=== PATIENT | male | born 1975 | race Hispanic/Latino ===

== ENCOUNTER 2016-08-10 05:58 | Emergency (ER) | payer OTHER ==
[2016-08-10 06:03] VITALS: O2SAT 98; BMI 22.6
[2016-08-10 06:13] VITALS: RESP 18
--- NOTE | 2016-08-10 06:15 | ED PDOC ---
Arrival/HPI - General Historian: Patient - General Chief Complaint: Shortness Of Breath Time Seen by Provider: 08/10/16 06:00 - History of Present Illness Narrative History of Present Illness (Text): 08/10/16 06:12 41 yo M with hx of pneumothorax, kidney stones and anxiety that presents with sob since previous night. He states that it feels as though he cannot catch his breath with no inciting factor. He admits to having a lot of stress at home lately. States that he was not able to sleep last night because of his symptoms. Denies any NAIDU, visual changes, travel, chest pain, sob, cough, palpitations, nausea or vomiting. (Arash Barber) Past Medical History - Provider Review Nursing Documentation Reviewed: Yes - Infectious Disease Hx of Infectious Diseases: None - Tetanus Immunization Tetanus Immunization: Unknown - Cardiac Hx Hypertension: Yes - Pulmonary Hx Respiratory Disorders: Yes - Psychiatric Hx Depression: No Hx Emotional Abuse: No Hx Physical Abuse: No Hx Substance Use: No - Past Surgical History Past Surgical History: No Previous - Suicidal Assessment Feels Threatened In Home Enviroment: No Family/Social History - Physician Review Nursing Documentation Reviewed: Yes Family/Social History: No Known Family HX Smoking Status: Light Smoker < 10 Cigarettes Daily Hx Alcohol Use: Yes (social) Hx Substance Use: No Hx Substance Use Treatment: No Allergies/Home Meds Allergies/Adverse Reactions: Allergies No Known Allergies Allergy (Verified 12/09/11 09:30) Home Medications: Home Meds Medication Instructions Recorded Confirmed Alprazolam 0.25 mg PO PRN 05/18/12 05/18/12 Review of Systems - Review of Systems Constitutional: Normal. absent: Fatigue, Fevers Eyes: Normal. absent: Vision Changes, Eye Pain ENT: Normal Respiratory: SOB. absent: Cough, Sputum Cardiovascular: Normal. absent: Chest Pain, Palpitations Gastrointestinal: Normal. absent: Abdominal Pain, Nausea, Vomiting Genitourinary Male: Normal. absent: Dysuria, Frequency Musculoskeletal: Normal. absent: Arthralgias Skin: Normal. absent: Rash, Pruritis Neurological: Normal. absent: Headache, Dizziness Endocrine: Normal Hemo/Lymphatic: Normal Psychiatric: Normal Physical Exam Temperature: Afebrile Blood Pressure: Hypertensive Pulse: Tachycardic Respiratory Rate: Normal Appearance: Positive for: Well-Appearing, Non-Toxic, Comfortable Pain Distress: None Mental Status: Positive for: Alert and Oriented X 3 - Systems Exam Head: Present: Atraumatic, Normocephalic Pupils: Present: PERRL Respiratory/Chest: Present: Clear to Auscultation, Good Air Exchange. No: Respiratory Distress Cardiovascular: Present: Normal S1, S2, Tachycardic Abdomen: Present: Normal Bowel Sounds. No: Tenderness, Distention Upper Extremity: Present: NORMAL PULSES, Neurovascularly Intact Lower Extremity: Present: NORMAL PULSES, Neurovascularly Intact Neurological: Present: Speech Normal, Motor Func Grossly Intact Skin: Present: Warm, Dry Psychiatric: Present: Alert, Oriented x 3 Medical Decision Making ED Course and Treatment: 08/10/16 06:15 41 yo M with hx of pneumothorax and anxiety here with sob Plan: - Labs including d dimer - EKG, CXR - Xanax - Reassess and disposition EKG - sinus tachycardia, LVH, no st elevations 08/10/16 06:58 CXR - no infiltrates or pleural effusions. No pneumothorax or cardiomegaly ( Arash Barber) Patient seen and evaluated with resident. Agree with HPI, clinical findnigs, plan and treatment. 08/10/16 07:11 (Zion Wong) - Lab Interpretations Lab Results: 08/10/16 06:20 08/10/16 06:20 Lab Results 08/10/16 06:20: Sodium 139, Potassium 4.3, Chloride 101, Carbon Dioxide 27, Anion Gap 15, BUN 15, Creatinine 0.9, Est GFR ( Amer) > 60, Est GFR (Non- Af Amer) > 60, Random Glucose 109, Calcium 9.4, Magnesium 2.2, Total Bilirubin 0.8, AST 30, ALT 28, Alkaline Phosphatase 75, Lactate Dehydrogenase 471, Total Creatine Kinase 108, Troponin I Pending, Total Protein 7.7, Albumin 4.3, Globulin 3.4, Albumin/Globulin Ratio 1.3 08/10/16 06:20: WBC 12.9 H, RBC 4.89, Hgb 14.6, Hct 42.6, MCV 87.1, MCH 29.9, MCHC 34.3, RDW 12.6, Plt Count 285, MPV 8.7, Gran % 81.5 H, Lymph % (Auto) 8.5 L , [place] % (Auto) 8.7 H, Eos % (Auto) 1.1 L, Baso % (Auto) 0.2, Gran # 10.53 H, Lymph # 1.1 L, [place] # 1.1 H, Eos # 0.1, Baso # 0.02 - RAD Interpretation Radiology Orders: 08/10/16 06:10 CHEST PORTABLE [RAD] Stat - Medication Orders Current Medication Orders: Discontinued Medications Alprazolam (Xanax) 0.5 mg PO STAT STA PRN Reason: Protocol Stop: 08/10/16 06:11 Last Admin: 08/10/16 06:29 Dose: 0.5 mg Disposition/Present on Arrival - Present on Arrival Any Indicators Present on Arrival: No History of DVT/PE: No History of Uncontrolled Diabetes: No Urinary Catheter: No History of Decub. Ulcer: No History Surgical Site Infection Following: None - Disposition Have Diagnosis and Disposition been Completed?: No Disposition Time: 07:10 - Disposition Diagnosis: Shortness of breath Patient Problems: Current Active Problems Problem Status Onset Shortness of breath Acute Condition: STABLE Referrals: PCP,NO [Primary Care Provider] - Follow up with primary
[2016-08-10 06:36] LABS: ADD MANUAL DIFF? NO
[2016-08-10 07:00] LABS: BASO # 0.02 K/mm3 (0.0-2.0); BASO % 0.2 % (0.0-3.0); EOS # 0.1 (0.0-0.7); EOS % 1.1 % (1.5-5.0); GRAN # 10.53 (1.4-6.5); GRAN % 81.5 % (50.0-68.0); HEMATOCRIT 42.6 % (42.0-52.0); LYMPH # 1.1 (1.2-3.4); LYMPH % 8.5 % (22.0-35.0); MEAN CELL VOLUME 87.1 fL (80.0-105.0); MEAN CORPUSCULAR HEMOGLOBIN 29.9 pg (25.0-35.0); MEAN CORPUSCULAR HGB CONC 34.3 g/dl (31.0-37.0); MEAN PLATELET VOLUME 8.7 fl (7.0-11.0); MONO # 1.1 (0.1-0.6); MONO % 8.7 % (1.0-6.0); PLATELET COUNT 285 10^3/uL (120.0-450.0); RED CELL DISTRIBUTION WIDTH 12.6 % (11.5-14.5); WHITE BLOOD COUNT 12.9 10^3/ul (4.5-11.0)
[2016-08-10 07:04] LABS: PH,URINE 7.5 (4.7-8.0); URINE BILIRUBIN NEGATIVE (NEGATIVE); URINE BLOOD NEGATIVE (NEGATIVE); URINE GLUCOSE (UA) NEGATIVE (NEGATIVE); URINE KETONE NEGATIVE (NEGATIVE); URINE LEUKOCYTE ESTERASE NEGATIVE Leu/uL (NEGATIVE); URINE PROTEIN TRACE mg/dL (<30 mg/dL); URINE UROBILINOGEN 0.2 E.U./dL (<1 E.U./dL)
[2016-08-10 07:06] LABS: ALB/GLOB RATIO 1.3 (1.1-1.8); ALKALINE PHOSPHATASE 75 U/L (38-133); ALT/SGPT 28 U/L (7-56); AST/SGOT 30 U/L (15-59); BILIRUBIN,TOTAL 0.8 mg/dL (0.2-1.3); BLOOD UREA NITROGEN 15 mg/dL (7-21); CALCIUM 9.4 mg/dL (8.4-10.5); CARBON DIOXIDE 27 mmol/L (21-33); CHLORIDE 101 mmol/L (98-107); GFR AFRICAN-AMERICAN > 60; GLUCOSE,RANDOM 109 mg/dL (70-110); MAGNESIUM 2.2 mg/dL (1.7-2.2); POTASSIUM 4.3 mmol/L (3.6-5.0); SODIUM 139 mmol/L (132-148); TOTAL PROTEIN 7.7 g/dL (5.8-8.3)
[2016-08-10 07:16] LABS: URINE APPEARANCE SL CLOUDY (CLEAR); URINE COLOR YELLOW (YELLOW)
[2016-08-10 07:16] LABS: TROPONIN I < 0.01 ng/mL
[2016-08-10 07:22] LABS: URINE AMORPHOUS SEDIMENT FEW; URINE RBC NEGATIVE /hpf (0-2); URINE WBC NEGATIVE /hpf (0-6)
--- NOTE | 2016-08-10 07:58 | ED PDOC ---
Physical Exam Vital Signs Reviewed: Yes Vital Signs Temp Pulse Resp BP Pulse Ox 08/10/16 06:12 18 98 08/10/16 06:02 97.7 F 118 H 20 155/95 H 98 Temperature: Afebrile Blood Pressure: Hypertensive Pulse: Tachycardic Respiratory Rate: Normal Appearance: Positive for: Well-Appearing, Non-Toxic, Comfortable Pain Distress: None Mental Status: Positive for: Alert and Oriented X 3 Medical Decision Making ED Course and Treatment: 08/10/16 07:55 Patient reports his symptoms feel similar to previous anxiety symptoms. Patient currently feels better. Denies complaints 08/10/16 08:14 no acute findings on pt's labs currently denies cp/sob/[place], denies cough, denies feeling anxious, denies SI/HI states he feels comfortable being dc'd home with outpatient fu on reeval, pt's lungs clear to ausc b/l, speaking full sentences without difficulty, not tachycardic Pt states he understands to return to the ER right away for new or worsening symptoms or for inability to f/u with PMD or specialist as instructed. Patient states that he fully agrees with and understands discharge instructions. States that he agrees with the plan and disposition. Verbalized and repeated discharge instructions and plan. I have given the patient opportunity to ask any additional questions. - Lab Interpretations Lab Results: 08/10/16 06:20 08/10/16 06:20 Lab Results 08/10/16 06:50: Urine Opiates Screen Negative, Urine Methadone Screen Negative, Ur Barbiturates Screen Negative, Ur Phencyclidine Scrn Negative, Ur Amphetamines Screen Negative, U Benzodiazepines Scrn Negative, U Oth Cocaine Metabols Positive H, U Cannabinoids Screen Negative 08/10/16 06:50: Urine Color Yellow, Urine Appearance Sl cloudy, Urine pH 7.5, Ur Specific [place] 1.015, Urine Protein Trace H, Urine Glucose (UA) Negative, Urine Ketones Negative, Urine Blood Negative, Urine Nitrate Negative, Urine Bilirubin Negative, Urine Urobilinogen 0.2, Ur Leukocyte Esterase Negative, Urine RBC Negative, Urine WBC Negative, Amorphous Sediment Few 08/10/16 06:20: D-Dimer, Quantitative 0.41 08/10/16 06:20: Sodium 139, Potassium 4.3, Chloride 101, Carbon Dioxide 27, Anion Gap 15, BUN 15, Creatinine 0.9, Est GFR ( Amer) > 60, Est GFR (Non- Af Amer) > 60, Random Glucose 109, Calcium 9.4, Magnesium 2.2, Total Bilirubin 0.8, AST 30, ALT 28, Alkaline Phosphatase 75, Lactate Dehydrogenase 471, Total Creatine Kinase 108, Troponin I < 0.01, Total Protein 7.7, Albumin 4.3, Globulin 3.4, Albumin/Globulin Ratio 1.3 08/10/16 06:20: WBC 12.9 H, RBC 4.89, Hgb 14.6, Hct 42.6, MCV 87.1, MCH 29.9, MCHC 34.3, RDW 12.6, Plt Count 285, MPV 8.7, Gran % 81.5 H, Lymph % (Auto) 8.5 L , [place] % (Auto) 8.7 H, Eos % (Auto) 1.1 L, Baso % (Auto) 0.2, Gran # 10.53 H, Lymph # 1.1 L, [place] # 1.1 H, Eos # 0.1, Baso # 0.02 - RAD Interpretation Radiology Orders: 08/10/16 06:10 CHEST PORTABLE [RAD] Stat - Medication Orders Current Medication Orders: Discontinued Medications Alprazolam (Xanax) 0.5 mg PO STAT STA PRN Reason: Protocol Stop: 08/10/16 06:11 Last Admin: 08/10/16 06:29 Dose: 0.5 mg - Scribe Statement The provider has reviewed the documentation as recorded by the Rashawn Durham Provider Scribe Attestation: All medical record entries made by the Rashawn were at my direction and personally dictated by me. I have reviewed the chart and agree that the record accurately reflects my personal performance of the history, physical exam, medical decision making, and the department course for this patient. I have also personally directed, reviewed, and agree with the discharge instructions and disposition. Disposition/Present on Arrival - Present on Arrival Any Indicators Present on Arrival: No History of DVT/PE: No History of Uncontrolled Diabetes: No Urinary Catheter: No History of Decub. Ulcer: No History Surgical Site Infection Following: None - Disposition Have Diagnosis and Disposition been Completed?: Yes Diagnosis: Shortness of breath Disposition: HOME/ ROUTINE Disposition Time: 08:15 Patient Plan: Discharge Patient Problems: Current Active Problems Problem Status Onset Shortness of breath Acute Condition: GOOD Discharge Instructions (ExitCare): Dyspnea (ED), Anxiety (ED) Additional Instructions: PLEASE RETURN TO THE EMERGENCY DEPARTMENT FOR NEW OR WORSENING SYMPTOMS. RETURN RIGHT AWAY IF YOU CANNOT FOLLOW UP WITH YOUR PRIMARY CARE DOCTOR, CLINIC, OR SPECIALIST IN 1-2 DAYS. Referrals: PCP,NO [Primary Care Provider] - Follow up with primary Denilson Jackson DO [Staff Provider] - Follow up with primary [facility] at [facility] [Outside] - Follow up with primary [facility] [Outside] - Follow up with primary
[2016-08-10 08:29] VITALS: BP 140/100; PULSE 79; TEMP 98
--- NOTE | 2016-08-10 08:37 | RAD ---
HISTORY: sob COMPARISON: 05/14/2013 FINDINGS: LUNGS: No active pulmonary disease. PLEURA: No significant pleural effusion identified, no pneumothorax apparent. CARDIOVASCULAR: Normal. OSSEOUS STRUCTURES: No significant abnormalities. VISUALIZED UPPER ABDOMEN: Normal. OTHER FINDINGS: None. IMPRESSION: No active disease.
--- NOTE | 2016-08-10 22:35 | CARD ---
APPROVED REPORT EKG Measurement Heart [id number] <Conclusion> Sinus tachycardia Possible Left atrial enlargement Left ventricular hypertrophy Nonspecific T wave abnormality Abnormal ECG
== END 2016-08-10 08:27 | disposition home or self-care (01) ==
LOC: ED 05:58
DX: R06.02 Shortness of breath (principal)

== ENCOUNTER 2017-08-02 09:32 | Inpatient (IN) | payer OTHER ==
[2017-08-02] MEDS ORDERED: Sodium Chloride 0.9% 1,000 ML IV STA ×2 (10:29→13:30)
[2017-08-02 10:54] LABS: BASO # 0.01 K/mm3 (0.0-2.0); BASO % 0.1 % (0.0-3.0); GRAN # 16.22 (1.4-6.5); HEMOGLOBIN 14.4 g/dL (14.0-18.0); LYMPH # 1.7 (1.2-3.4); LYMPH % 8.9 % (22.0-35.0); MEAN CELL VOLUME 84.2 fl (80.0-105.0); MEAN CORPUSCULAR HEMOGLOBIN 29.6 pg (25.0-35.0); MEAN CORPUSCULAR HGB CONC 35.1 g/dl (31.0-37.0); MEAN PLATELET VOLUME 8.8 fl (7.0-11.0); MONO # 0.9 (0.1-0.6); RBC 4.87 10^6/uL (3.5-6.1); RED CELL DISTRIBUTION WIDTH 13.2 % (11.5-14.5); WHITE BLOOD COUNT 18.8 10^3/ul (4.5-11.0)
--- NOTE | 2017-08-02 11:01 | ED PDOC ---
Arrival/HPI - General Chief Complaint: Psychiatric Evaluation Time Seen by Provider: 08/02/17 10:15 Historian: Patient EM Caveat: Acuity of Condition, Unstable Vital Signs - History of Present Illness Narrative History of Present Illness (Text): 08/02/17 10:55 Pt is a 42 yr old male with history if anxiety and depression who presents today with severe agitation and thirst s/p MDMA intoxication x 1-2 weeks. pt states that he has taken 1-2g MDMA per day for the past 1.5 weeks. States that he has marital problems and was fired from his work recently and is currently on Day 2 of a new job. Denies SI, HI, fever, chills chest pain, shortness of breath, nausea, vomiting or diarrhea. 08/02/17 22:36 Time/Duration: > week Symptom Onset: Gradual Symptom Course: Unchanged, Worsening Quality: Unable to Describe Severity Level: 4 Activities at Onset: Rest Context: Home Past Medical History - Provider Review Nursing Documentation Reviewed: Yes - Travel History Have you recently traveled outside [place] w/in the past 3 mons?: No - Infectious Disease Hx of Infectious Diseases: None - Tetanus Immunization Tetanus Immunization: Unknown - Cardiac Hx Cardiac Disorders: No Hx Hypertension: Yes - Pulmonary Hx Respiratory Disorders: Yes - Neurological Hx Neurological Disorder: No - HEENT Hx HEENT Disorder: No - Renal Hx Renal Disorder: No - Endocrine/Metabolic Hx Endocrine Disorders: No - Hematological/Oncological Hx Blood Disorders: No - Integumentary Hx Dermatological Disorder: No - Musculoskeletal/Rheumatological Hx Musculoskeletal Disorders: No - Gastrointestinal Hx Gastrointestinal Disorders: No - Genitourinary/Gynecological Hx Genitourinary Disorders: No - Psychiatric Hx Psychophysiologic Disorder: Yes Hx Anxiety: Yes Hx Depression: Yes Hx Emotional Abuse: No Hx Physical Abuse: No Hx Substance Use: Yes (daily) - Past Surgical History Past Surgical History: No Previous - Surgical History Other/Comment: chest tube - Suicidal Assessment Feels Threatened In Home Enviroment: No Family/Social History - Physician Review Nursing Documentation Reviewed: Yes Family/Social History: Unknown Family HX Smoking Status: Light Smoker < 10 Cigarettes Daily Hx Alcohol Use: Yes (social) Hx Substance Use: Yes (daily) Substance used: [place], cocaine, marijuana Hx Substance Use Treatment: No Allergies/Home Meds Allergies/Adverse Reactions: Allergies No Known Allergies Allergy (Verified 08/02/17 19:04) Home Medications: Home Meds Medication Instructions Recorded Confirmed Unobtainable 08/02/17 08/02/17 Review of Systems - Review of Systems Systems not reviewed;Unavailable: Psychotic Constitutional: Normal, Fevers Eyes: Normal, Vision Changes ENT: Normal, Hearing Changes Respiratory: Normal. absent: SOB, Cough Cardiovascular: Normal. absent: Chest Pain Gastrointestinal: Normal. absent: Abdominal Pain Genitourinary Male: Normal. absent: Dysuria Musculoskeletal: Normal Skin: Normal Neurological: Normal. absent: Headache Endocrine: Normal Hemo/Lymphatic: Normal Psychiatric: Normal, Anxiety, Depression. absent: Suicidal Ideation Physical Exam Vital Signs Reviewed: Yes Vital Signs Temp Pulse Resp BP Pulse Ox 08/02/17 20:30 100 H 18 138/87 98 08/02/17 18:02 101 H 20 151/93 H 95 08/02/17 16:06 108 H 20 162/96 H 99 08/02/17 15:02 97.7 F 115 H 18 138/77 100 08/02/17 10:02 98.6 F 120 H 18 148/88 100 Temperature: Afebrile Blood Pressure: Normal Pulse: Tachycardic Respiratory Rate: Normal Appearance: Positive for: Well-Appearing, Non-Toxic, Comfortable Pain Distress: Mild Mental Status: Positive for: Alert and Oriented X 3, Agitated - Systems Exam Head: Present: Atraumatic, Normocephalic Pupils: Present: PERRL, Pinpoint Extroacular Muscles: Present: EOMI Conjunctiva: Present: Normal Mouth: Present: Moist Mucous Membranes Nose (External): Present: Atraumatic Nose (Internal): Present: Normal Inspection Neck: Present: Normal Range of Motion Respiratory/Chest: Present: Clear to Auscultation, Good Air Exchange. No: Respiratory Distress, Accessory Muscle Use Cardiovascular: Present: Regular Rate and Rhythm, Normal S1, S2. No: Murmurs Abdomen: Present: Normal Bowel Sounds. No: Tenderness, Distention, Peritoneal Signs, Rebound, Guarding, [place] Tender Back: Present: Normal Inspection. No: CVA Tenderness, Midline Tenderness, Paraspinal Tenderness Upper Extremity: Present: Normal Inspection, Normal ROM, NORMAL PULSES. No: Cyanosis, Edema Lower Extremity: Present: Normal Inspection, NORMAL PULSES, Normal ROM. No: Edema, CALF TENDERNESS Neurological: Present: GCS=15, CN II-XII Intact, Speech Normal (pressured), Motor Func Grossly Intact, Gait Normal. No: Memory Normal Skin: Present: Warm, Dry, Normal Color, Laceration (right foot on dorsal side). No: Rashes Psychiatric: Present: Alert, Oriented x 3, Normal Insight, Normal Concentration , Anxious, Agitated, Hallucinations, Intoxicated. No: Normal Affect, Normal Mood, Suicidal Ideation, Homicidal Ideation Medical Decision Making ED Course and Treatment: 08/02/17 11:01 Impression Pt is a 42 yr old male with history if anxiety and depression who presents today with severe agitation and thirst s/p MDMA intoxication x 1-2 weeks. Plan Tox screen, EtOH ECG, Fluids Cardiac ISO urine myoglobin Progress note 08/02/17 11:40 pt received Ativan 2 mg ivp and fluids Continues to be very agitated/restless and reports seeing and talking to small people outside of his room 08/02/17 12:28 Pt reports using cannibis and cocaine tuesday Psych consult placed Labs reveal: WBC 18.8 with grans 86% Total CK 1315 and CK-MB 13.6 tox screen still pending CXR and head CT STAT 08/02/17 13:[address] Schwartz in Psych. 08/02/17 14:37 NS 1L bolus added and Ativan 2mg Pt continues to be active, singing and dancing, stripping off his clothes Geodon 20mg IM ordered; pt stated he needed something to calm him down 08/02/17 14:59 Spoke with Hosptialist who agreed to take pt; requested that we wait until pt is calm before taking to the floor Admit to Tele for rhabdomyolisis secondary to polysubstance abuse Will contact Dr De La Fuente once pt psychologically stable 08/02/17 15:00 08/02/17 18:40 Pt broke through sedation, yelling, had a bloody mouth possibly d/t tongue biting Ativan 2mg STAT Haldol 5mg STAT Restraints put on at 17:00 and moved to Bed1 Spoke with at bedside and informed her of pt status and admission 08/02/17 22:37 pt remains sedated in ED awaiting bed on floor - Lab Interpretations Lab Results: 08/02/17 10:45 08/02/17 10:45 Lab Results 08/02/17 13:45: Urine Opiates Screen Negative, Urine Methadone Screen Negative, Ur Barbiturates Screen Negative, Ur Phencyclidine Scrn Negative, Ur Amphetamines Screen Negative, U Benzodiazepines Scrn Positive H, U Oth Cocaine Metabols Negative, U Cannabinoids Screen Negative 08/02/17 13:45: Urine Color Yellow, Urine Appearance Clear, Urine pH 6.0, Ur Specific [place] >= 1.030, Urine Protein 100 H, Urine Glucose (UA) Negative, Urine Ketones 40 H, Urine Blood Large H, Urine Nitrate Negative, Urine Bilirubin Small H, Urine Urobilinogen 0.2, Ur Leukocyte Esterase Trace H, Urine RBC 25 - 30, Urine WBC 5 - 10, Ur Epithelial Cells 0 - 2, Amorphous Sediment Few , Urine Bacteria Many, Fine Granular Casts 0 - 2, Coarse Granular Casts Trace H 08/02/17 10:45: PT 12.3, INR 1.07, APTT 27.9 08/02/17 10:45: Alcohol, Quantitative < 10 08/02/17 10:45: Sodium 141, Potassium 3.9, Chloride 102, Carbon Dioxide 23, Anion Gap 20, BUN 21, Creatinine 1.1, Est GFR ( Amer) > 60, Est GFR (Non- Af Amer) > 60, Random Glucose 73, Calcium 9.4, Total Bilirubin 1.7 H, AST 73 H, ALT 58 H, Alkaline Phosphatase 83, Lactate Dehydrogenase 1101 H, Total Creatine Kinase 1315 H, CK-MB (CK-2) 13.6 H, CK-MB (CK-2) % 1.0 L, Troponin I < 0.01, Total Protein 8.0, Albumin 4.6, Globulin 3.4, Albumin/Globulin Ratio 1.4 08/02/17 10:45: WBC 18.8 H D, RBC 4.87, Hgb 14.4, Hct 41.0 L, MCV 84.2, MCH 29.6 , MCHC 35.1, RDW 13.2, Plt Count 318, MPV 8.8, Gran % 86.0 H, Lymph % (Auto) 8.9 L, [place] % (Auto) 5.0, Eos % (Auto) 0.0 L, Baso % (Auto) 0.1, Gran # 16.22 H , Lymph # (Auto) 1.7, [place] # (Auto) 0.9 H, Eos # (Auto) 0.0, Baso # (Auto) 0.01 - RAD Interpretation Narrative RAD Interpretations (Text): 08/02/17 16:46 PROCEDURE: CT HEAD WITHOUT CONTRAST. HISTORY: AMS COMPARISON: None available. TECHNIQUE: Axial computed tomography images were obtained through the head/brain without intravenous contrast. Radiation dose: Total exam DLP = 953 mGy-cm. This CT exam was performed using one or more of the following dose reduction techniques: Automated exposure control, adjustment of the mA and/or kV according to patient size, and/or use of iterative reconstruction technique. FINDINGS: HEMORRHAGE: No intracranial hemorrhage. BRAIN: No mass effect or edema. No atrophy or chronic microvascular ischemic changes. VENTRICLES: Unremarkable. No hydrocephalus. CALVARIUM: Unremarkable. PARANASAL SINUSES: Unremarkable as visualized. No significant inflammatory changes. MASTOID AIR CELLS: Unremarkable as visualized. No inflammatory changes. OTHER FINDINGS: None. IMPRESSION: No acute intracranial findings Radiology Orders: 08/02/17 12:17 CHEST PORTABLE [RAD] Stat 08/02/17 12:18 HEAD W/O CONTRAST [CT] Stat - EKG Interpretation Interpreted by ED Physician: Yes (Sinus Tach with left ventricular enlargment, T -wave abnrmalities, Rate of ) Comparison: Similar to previous EKG - Medication Orders Current Medication Orders: Clonazepam (Klonopin) 0.5 mg PO BID SALLY PRN Reason: Protocol Last Admin: 08/02/17 17:54 Dose: Heparin Sodium (Porcine) (Heparin) 5,000 units SC Q8 SALLY PRN Reason: Protocol Last Admin: 08/02/17 17:53 Dose: 5,000 units Subcutaneous Administrations Document 08/02/17 17:53 SRE (Rec: 08/02/17 17:54 SRE [id number]) Injection Site MAR Injection Site Left Abdomen Charges for Administration # of Subcutaneous Administrations 1 Sodium Chloride (Sodium Chloride 0.9%) 1,000 mls @ 150 mls/hr IV .Q6H40M SALLY Last Admin: 08/02/17 17:53 Dose: 150 mls/hr eMAR Start Stop Document 08/02/17 17:53 SRE (Rec: 08/02/17 17:53 SRE [id number]) Intravenous Solution Start Date 08/02/17 Start Time 17:53 Lorazepam (Ativan) 2 mg IVP Q6H PRN; Protocol PRN Reason: Anxiety Pantoprazole Sodium (Protonix Inj) 40 mg IVP DAILY SALLY Last Admin: 08/02/17 17:54 Dose: 40 mg IVP Administration Document 08/02/17 17:54 SRE (Rec: 08/02/17 17:54 SRE [id number]) Charges for Administration # of IVP Administrations 1 Discontinued Medications Aspirin (Ecotrin) 81 mg PO STAT STA Stop: 08/02/17 16:44 Last Admin: 08/02/17 17:53 Dose: Aspirin (Aspirin Supp) 300 mg RC STAT STA Stop: 08/02/17 16:44 Last Admin: 08/02/17 17:52 Dose: 300 mg Haloperidol Lactate (Haldol) 5 mg IVP STAT STA PRN Reason: Protocol Stop: 08/02/17 17:38 Last Admin: 08/02/17 18:02 Dose: 5 mg IVP Administration Document 08/02/17 18:02 SRE (Rec: 08/02/17 18:02 SRE [id number]) Charges for Administration # of IVP Administrations 1 Sodium Chloride (Sodium Chloride 0.9%) 1,000 mls @ 999 mls/hr IV .Q1H1M STA Stop: 08/02/17 11:29 Last Admin: 08/02/17 10:49 Dose: 999 mls/hr eMAR Start Stop Document 08/02/17 10:49 SRE (Rec: 08/02/17 10:49 SRE [id number]) Intravenous Solution Start Date 08/02/17 Start Time 10:49 End Date 08/02/17 End time 11:50 Total Infusion Time 61 Sodium Chloride (Sodium Chloride 0.9%) 1,000 mls @ 999 mls/hr IV .Q1H1M STA Stop: 08/02/17 14:30 Last Admin: 08/02/17 14:51 Dose: 999 mls/hr eMAR Start Stop Document 08/02/17 14:51 SRE (Rec: 08/02/17 14:52 SRE [id number]) Intravenous Solution Start Date 08/02/17 Start Time 14:52 End Date 08/02/17 End time 15:50 Total Infusion Time 58 Lorazepam (Ativan) 2 mg IVP ONCE ONE PRN Reason: Protocol Stop: 08/02/17 10:25 Last Admin: 08/02/17 10:48 Dose: 2 mg IVP Administration Document 08/02/17 10:48 SRE (Rec: 08/02/17 10:49 SRE [id number]) Charges for Administration # of IVP Administrations 2 Lorazepam (Ativan) 2 mg IVP ONCE ONE PRN Reason: Protocol Stop: 08/02/17 13:30 Last Admin: 08/02/17 14:51 Dose: 2 mg IVP Administration Document 08/02/17 14:51 SRE (Rec: 08/02/17 14:51 SRE [id number]) Charges for Administration # of IVP Administrations 1 Lorazepam (Ativan) 2 mg IM ONCE ONE PRN Reason: Protocol Stop: 08/02/17 16:30 Last Admin: 08/02/17 17:45 Dose: 2 mg IM Administration Charges Document 08/02/17 17:45 SRE (Rec: 08/02/17 17:51 SRE [id number]) Injection Site MAR Injection Site Left Gluteus Kale Charges for Administration # of IM Administrations 1 Ziprasidone (Geodon Inj) 20 mg IM STAT STA PRN Reason: Protocol Stop: 08/02/17 14:35 Last Admin: 08/02/17 14:52 Dose: 20 mg IM Administration Charges Document 08/02/17 14:52 SRE (Rec: 08/02/17 14:52 SRE [id number]) Injection Site MAR Injection Site Right Gluteus [place]ale Charges for Administration # of IM Administrations 1 Disposition/Present on Arrival - Present on Arrival Any Indicators Present on Arrival: Yes History of DVT/PE: No History of Uncontrolled Diabetes: No Urinary Catheter: No History of Decub. Ulcer: No History Surgical Site Infection Following: None - Disposition Have Diagnosis and Disposition been Completed?: Yes Diagnosis: Substance abuse or dependence, Secondary rhabdomyolysis, Urinary tract infection, Polysubstance abuse Disposition: HOSPITALIZED Disposition Time: 15:46 Patient Plan: Admission Patient Problems: Current Active Problems Problem Status Onset Substance abuse or dependence Acute Secondary rhabdomyolysis Acute Urinary tract infection Acute Polysubstance abuse Acute Condition: FAIR
[2017-08-02 11:02] LABS: ALB/GLOB RATIO 1.4 (1.1-1.8); ALBUMIN 4.6 g/dL (3.0-4.8); ALT/SGPT 58 U/L (7-56); AST/SGOT 73 U/L (17-59); BLOOD UREA NITROGEN 21 mg/dL (7-21); CALCIUM 9.4 mg/dL (8.4-10.5); GFR AFRICAN-AMERICAN > 60; GFR NON-AFRICAN AMERICAN > 60
[2017-08-02 11:14] LABS: INR 1.07 (0.93-1.08); PARTIAL THROMBOPLASTIN TIME 27.9 Seconds (25.1-36.5); PROTHROMBIN TIME 12.3 SECONDS (9.4-12.5)
[2017-08-02 11:24] LABS: CK-MB 13.6 ng/mL (0.0-3.6)
--- NOTE | 2017-08-02 12:57 | RAD ---
HISTORY: drug overdose COMPARISON: 08/10/2016. FINDINGS: LUNGS: The lungs are well inflated. There are fibrotic changes in the upper lobes. No focal consolidation. PLEURA: No significant pleural effusion identified, no pneumothorax apparent. CARDIOVASCULAR: Normal. OSSEOUS STRUCTURES: No significant abnormalities. VISUALIZED UPPER ABDOMEN: Normal. OTHER FINDINGS: None. IMPRESSION: No acute findings.
[2017-08-02 13:54] LABS: URINE BILIRUBIN SMALL (NEGATIVE); URINE BLOOD LARGE (NEGATIVE); URINE GLUCOSE (UA) NEGATIVE (NEGATIVE); URINE LEUKOCYTE ESTERASE TRACE Leu/uL (NEGATIVE); URINE PROTEIN 100 mg/dL (<30 mg/dL); URINE UROBILINOGEN 0.2 E.U./dL (<1 E.U./dL)
[2017-08-02 13:56] LABS: URINE APPEARANCE CLEAR (CLEAR); URINE COLOR YELLOW (YELLOW)
[2017-08-02 14:05] LABS: URINE BACTERIA MANY (NEG); URINE EPITHELIAL CELLS 0 - 2 /hpf (0-5); URINE RBC 25 - 30 /hpf (0-2)
[2017-08-02 14:06] LABS: URINE FINE GRANULAR CAST 0 - 2 /hpf (0-2)
[2017-08-02 14:07] LABS: URINE AMORPHOUS SEDIMENT FEW; URINE COARSE GRANULAR CAST TRACE /hpf (0-2)
[2017-08-02 14:16] LABS: PHENCYCLIDINE, UR NEGATIVE (NEGATIVE)
[2017-08-02 14:18] LABS: BARBITURATES, UR NEGATIVE (NEGATIVE); BENZODIAZEPINES, UR POSITIVE (NEGATIVE); OPIATES, UR NEGATIVE (NEGATIVE)
[2017-08-02 15:15] LABS: TROPONIN I < 0.01 ng/mL
--- NOTE | 2017-08-02 15:45 | CP.PCM.HP ---
<Laz Rangel - Last Filed: 08/02/17 17:04> History of Present Illness - History of Present Illness History of Present Illness: Patient is a 42 M with a past medical history of pneumothorax, anxiety, and depression who is presenting with agitation and excess thirst. Patient admits to taking 1-2 grams of MDMA each day since Tuesday as well as admits to taking cocaine and marijuana on a daily basis. Patient states he currently has no suicidal ideations but is currently going through marital problems at home. Patient was recently fired from a job and this is his second day on his new job. ROS not obtained as patient is mentally altered. Present on Admission - Present on Admission Any Indicators Present on Admission: No Review of Systems - Review of Systems Systems not reviewed;Unavailable: Altered Mental Status, Intoxicated Past Patient History - Infectious Disease Hx of Infectious Diseases: None - Tetanus Immunizations Tetanus Immunization: Unknown - Past Social History Smoking Status: Light Smoker < 10 Cigarettes Daily - CARDIAC Hx Cardiac Disorders: No Hx Hypertension: Yes - PULMONARY Hx Respiratory Disorders: Yes - NEUROLOGICAL Hx Neurological Disorder: No - HEENT Hx HEENT Problems: No - RENAL Hx Chronic Kidney Disease: No - ENDOCRINE/METABOLIC Hx Endocrine Disorders: No - HEMATOLOGICAL/ONCOLOGICAL Hx Blood Disorders: No - INTEGUMENTARY Hx Dermatological Problems: No - MUSCULOSKELETAL/RHEUMATOLOGICAL Hx Musculoskeletal Disorders: No - GASTROINTESTINAL Hx Gastrointestinal Disorders: No - GENITOURINARY/GYNECOLOGICAL Hx Genitourinary Disorders: No - PSYCHIATRIC Hx Psychophysiologic Disorder: Yes Hx Anxiety: Yes Hx Depression: Yes Hx Emotional Abuse: No Hx Physical Abuse: No Hx Substance Use: Yes (daily) - SURGICAL HISTORY Other/Comment: chest tube Meds Allergies/Adverse Reactions: Allergies Allergy/AdvReac Type Severity Reaction Status Date / Time No Known Allergies Allergy Verified 08/02/17 19:04 Physical Exam - Constitutional Appears: Toxic Additional comments: Physical exam limited due to patient's altered mental status - Head Exam Head Exam: ATRAUMATIC, NORMAL INSPECTION, NORMOCEPHALIC - ENT Exam ENT Exam: Mucous Membranes Moist - Respiratory Exam Respiratory Exam: Clear to Auscultation Bilateral. absent: Rales, Rhonchi, Wheezes - Cardiovascular Exam Cardiovascular Exam: Tachycardia, +S1, +S2 - GI/Abdominal Exam GI & Abdominal Exam: Normal Bowel Sounds, Soft - Extremities Exam Extremities exam: Positive for: normal inspection - Back Exam Back exam: NORMAL INSPECTION - Neurological Exam Neurological exam: Altered - Skin Skin Exam: Normal Color, Warm Results - Vital Signs Recent Vital Signs: Last Vital Signs Temp 97.7 F 08/02/17 15:02 Pulse 115 H 08/02/17 15:02 Resp 18 08/02/17 15:02 BP 138/77 08/02/17 15:02 Pulse Ox 100 08/02/17 15:02 - Labs Result Diagrams: 08/02/17 10:45 08/02/17 10:45 Labs: Laboratory Results - last 24 hr 08/02/17 08/02/17 08/02/17 10:45 10:45 10:45 WBC 18.8 H D RBC 4.87 Hgb 14.4 Hct 41.0 L MCV 84.2 MCH 29.6 MCHC 35.1 RDW 13.2 Plt Count 318 MPV 8.8 Gran % 86.0 H Lymph % (Auto) 8.9 L [place] % (Auto) 5.0 Eos % (Auto) 0.0 L Baso % (Auto) 0.1 Gran # 16.22 H Lymph # (Auto) 1.7 [place] # (Auto) 0.9 H Eos # (Auto) 0.0 Baso # (Auto) 0.01 PT INR APTT Sodium 141 Potassium 3.9 Chloride 102 Carbon Dioxide 23 Anion Gap 20 BUN 21 Creatinine 1.1 Est GFR ( Amer) > 60 Est GFR (Non-Af Amer) > 60 Random Glucose 73 Calcium 9.4 Total Bilirubin 1.7 H AST 73 H ALT 58 H Alkaline Phosphatase 83 Lactate Dehydrogenase 1101 H Total Creatine Kinase 1315 H CK-MB (CK-2) 13.6 H CK-MB (CK-2) % 1.0 L Troponin I < 0.01 Total Protein 8.0 Albumin 4.6 Globulin 3.4 Albumin/Globulin Ratio 1.4 Urine Color Urine Appearance Urine pH Ur Specific Cow[place] Urine Protein Urine Glucose (UA) Urine Ketones Urine Blood Urine Nitrate Urine Bilirubin Urine Urobilinogen Ur Leukocyte Esterase Urine RBC Urine WBC Ur Epithelial Cells Amorphous Sediment Urine Bacteria Fine Granular Casts Coarse Granular Casts Urine Opiates Screen Urine Methadone Screen Ur Barbiturates Screen Ur Phencyclidine Scrn Ur Amphetamines Screen U Benzodiazepines Scrn U Oth Cocaine Metabols U Cannabinoids Screen Alcohol, Quantitative < 10 08/02/17 08/02/17 08/02/17 10:45 13:45 13:45 WBC RBC Hgb Hct MCV MCH MCHC RDW Plt Count MPV Gran % Lymph % (Auto) H[place]go % (Auto) Eos % (Auto) Baso % (Auto) Gran # Lymph # (Auto) [place] # (Auto) Eos # (Auto) Baso # (Auto) PT 12.3 INR 1.07 APTT 27.9 Sodium Potassium Chloride Carbon Dioxide Anion Gap BUN Creatinine Est GFR ( Amer) Est GFR (Non-Af Amer) Random Glucose Calcium Total Bilirubin AST ALT Alkaline Phosphatase Lactate Dehydrogenase Total Creatine Kinase CK-MB (CK-2) CK-MB (CK-2) % Troponin I Total Protein Albumin Globulin Albumin/Globulin Ratio Urine Color Yellow Urine Appearance Clear Urine pH 6.0 Ur Specific Cow[place]ill >= 1.030 Urine Protein 100 H Urine Glucose (UA) Negative Urine Ketones 40 H Urine Blood Large H Urine Nitrate Negative Urine Bilirubin Small H Urine Urobilinogen 0.2 Ur Leukocyte Esterase Trace H Urine RBC 25 - 30 Urine WBC 5 - 10 Ur Epithelial Cells 0 - 2 Amorphous Sediment Few Urine Bacteria Many Fine Granular Casts 0 - 2 Coarse Granular Casts Trace H Urine Opiates Screen Negative Urine Methadone Screen Negative Ur Barbiturates Screen Negative Ur Phencyclidine Scrn Negative Ur Amphetamines Screen Negative U Benzodiazepines Scrn Positive H U Oth Cocaine Metabols Negative U Cannabinoids Screen Negative Alcohol, Quantitative Assessment & Plan - Assessment and Plan (Free Text) Assessment: Patient is a 42 M with a past medical history of pneumothorax, anxiety, and depression who is presenting with agitation and excess thirst s/p MDMA, cocaine , and marijuana abuse. Rhabdomyolysis -IVF@150 -Repeat CPK -Monitor enzymes Leukocytosis -Most likely reactive due to cocaine abuse -CXR comparable to previous in 2017 -UA shows trace leukocyte esterase with WBC 2-5 Cocaine abuse -Trend troponins -EKG series -Current EKG similar to previous in 2017 Drug abuse -Psych consulted -Klonopin BID <Cruz Brantley - Last Filed: 08/05/17 17:27> Results - Vital Signs Recent Vital Signs: Last Vital Signs Temp 98.2 F 08/04/17 00:01 Pulse 89 08/04/17 14:00 Resp 20 08/04/17 00:01 BP 126/67 08/04/17 00:01 Pulse Ox 97 08/04/17 00:01 - Labs Result Diagrams: 08/04/17 06:30 08/04/17 06:30 Attending/Attestation - Attestation I have personally seen and examined this patient.: Yes I have fully participated in the care of the patient.: Yes I have reviewed all pertinent clinical information: Yes Notes (Text): 42 M with a past medical history of pneumothorax, anxiety, and depression who is presenting with agitation and excess thirst s/p MDMA, cocaine, and marijuana abuse. Rhabdomyolysis Acute psychosis due to MDMA (exctacy) Cocaine intoxication leucocytosis
--- NOTE | 2017-08-02 15:56 | CT ---
PROCEDURE: CT HEAD WITHOUT CONTRAST. HISTORY: AMS COMPARISON: None available. TECHNIQUE: Axial computed tomography images were obtained through the head/brain without intravenous contrast. Radiation dose: Total exam DLP = 953 mGy-cm. This CT exam was performed using one or more of the following dose reduction techniques: Automated exposure control, adjustment of the mA and/or kV according to patient size, and/or use of iterative reconstruction technique. FINDINGS: HEMORRHAGE: No intracranial hemorrhage. BRAIN: No mass effect or edema. No atrophy or chronic microvascular ischemic changes. VENTRICLES: Unremarkable. No hydrocephalus. CALVARIUM: Unremarkable. PARANASAL SINUSES: Unremarkable as visualized. No significant inflammatory changes. MASTOID AIR CELLS: Unremarkable as visualized. No inflammatory changes. OTHER FINDINGS: None. IMPRESSION: No acute intracranial findings
--- NOTE | 2017-08-02 16:00 | CARD ---
APPROVED REPORT EKG Measurement Heart [id number] <Conclusion> Sinus tachycardia Possible Left atrial enlargement Left ventricular hypertrophy STTW changes c/w ischemia Mild ST elevations 2,3,F, V 3 - 6 Similar to ECG 08/10/16
[2017-08-02] MEDS: Sodium Chloride 0.9% 1,000 ML IV SCH (17:53)
[2017-08-02 23:09] VITALS: BMI 19.8
[2017-08-02] MEDS ORDERED: Pneumococcal 23-Valent Vaccine IM ONE (23:09)
[2017-08-03] MEDS: Sodium Chloride 0.9% 1,000 ML IV SCH ×5 (02:32→17:22)
[2017-08-03 07:14] LABS: BASO # 0.03 K/mm3 (0.0-2.0); BASO % 0.5 % (0.0-3.0); EOS # 0.2 (0.0-0.7); EOS % 3.5 % (1.5-5.0); GRAN # 3.47 (1.4-6.5); GRAN % 61.4 % (50.0-68.0); HEMOGLOBIN 13.2 g/dL (14.0-18.0); LYMPH % 17.8 % (22.0-35.0); MEAN CELL VOLUME 86.8 fl (80.0-105.0); MEAN CORPUSCULAR HEMOGLOBIN 28.6 pg (25.0-35.0); MEAN CORPUSCULAR HGB CONC 32.9 g/dl (31.0-37.0); MEAN PLATELET VOLUME 8.6 fl (7.0-11.0); MONO % 16.8 % (1.0-6.0); RBC 4.62 10^6/uL (3.5-6.1); RED CELL DISTRIBUTION WIDTH 13.7 % (11.5-14.5); WHITE BLOOD COUNT 5.7 10^3/ul (4.5-11.0)
[2017-08-03 07:33] LABS: ALB/GLOB RATIO 1.3 (1.1-1.8); ALBUMIN 3.7 g/dL (3.0-4.8); ALT/SGPT 51 U/L (7-56); AST/SGOT 64 U/L (17-59); BLOOD UREA NITROGEN 17 mg/dL (7-21); CALCIUM 8.5 mg/dL (8.4-10.5); GFR AFRICAN-AMERICAN > 60; GFR NON-AFRICAN AMERICAN > 60
[2017-08-03 07:59] LABS: CK MB% 1.6 % (2.5-3.0); CK-MB 16.5 ng/mL (0.0-3.6)
--- NOTE | 2017-08-03 12:38 | CP.PCM.PN ---
Subjective - Date & Time of Evaluation Date of Evaluation: 08/03/17 Time of Evaluation: 12:38 - Subjective Subjective: Gali Naranjo, PGY1, Progress Note for Dr Lieberman: Patient seen and examined at bedside. No acute events overnight. Pt states that his dizziness is improved since yesterday. He also reports less agitation. Pt states that he has been lately depressed due to personal stressors. However, pt states that he is unlikely to voluntarily admit himself to [facility]. Denies suicidal/homicidal ideations. Denies body aches/muscle soreness, cp, sob, abdominal pain, urinary symptoms. Objective - Vital Signs/Intake and Output Vital Signs (last 24 hours): Temp Pulse Resp BP Pulse Ox 97.3 F L 81 20 130/78 98 08/03/17 06:00 08/03/17 10:00 08/03/17 06:00 08/03/17 06:00 08/03/17 06:00 Intake and Output: 08/03/17 08/03/17 06:59 18:59 Intake Total 1050 Output Total 300 Balance 750 - Medications Medications: Current Medications Clonazepam (Klonopin) 0.5 mg PO BID SALLY PRN Reason: Protocol Last Admin: 08/03/17 09:26 Dose: 0.5 mg Heparin Sodium (Porcine) (Heparin) 5,000 units SC Q8 SALLY PRN Reason: Protocol Last Admin: 08/03/17 05:03 Dose: Not Given Sodium Chloride (Sodium Chloride 0.9%) 1,000 mls @ 150 mls/hr IV .Q6H40M [facility] Last Admin: 08/03/17 09:23 Dose: 150 mls/hr Lorazepam (Ativan) 2 mg IVP Q6H PRN; Protocol PRN Reason: Anxiety Pantoprazole Sodium (Protonix Inj) 40 mg IVP DAILY [facility] Last Admin: 08/03/17 09:26 Dose: 40 mg - Labs Labs: 08/03/17 06:30 08/03/17 06:30 PT 12.3 SECONDS (9.4-12.5) 08/02/17 10:45 INR 1.07 (0.93-1.08) 08/02/17 10:45 APTT 27.9 Seconds (25.1-36.5) 08/02/17 10:45 - Constitutional Appears: Non-toxic, No Acute Distress - Head Exam Head Exam: ATRAUMATIC, NORMOCEPHALIC - Eye Exam Eye Exam: EOMI, PERRL. absent: Conjunctival injection, Nystagmus Pupil Exam: NORMAL ACCOMODATION, PERRL. absent: Fixed, Irregular, Unequal - ENT Exam ENT Exam: Mucous Membranes Moist - Neck Exam Neck Exam: Full ROM - Respiratory Exam Respiratory Exam: Clear to Ausculation Bilateral, NORMAL BREATHING PATTERN. absent: Accessory Muscle Use, Rhonchi, Wheezes, Stridor - Cardiovascular Exam Cardiovascular Exam: RRR, +S1, +S2. absent: Murmur - GI/Abdominal Exam GI & Abdominal Exam: Soft, Normal Bowel Sounds. absent: Distended, Firm, Guarding, Tenderness, Mass, Organomegaly, Rebound - Extremities Exam Extremities Exam: Normal Inspection. absent: Calf Tenderness, Pedal Edema - Back Exam Back Exam: NORMAL INSPECTION - Neurological Exam Neurological Exam: Alert, Awake, Oriented x3 - Psychiatric Exam Psychiatric exam: Depressed, Flat Affect - Skin Skin Exam: Dry, Normal Color, Warm Assessment and Plan - Assessment and Plan (Free Text) Assessment: 42 year old male with PMH spontaneous pneumothorax, depression, anxiety, presents for agitation and unsteady gait s/p MDMA, cocaine, and marijuana abuse , admitted for rhabdomyolysis: Rhabdomyolysis: -NS at 150 - repeat cpk this AM downtrending - trend CPK Agitation: 2/2 multidrug use: - Advised cessation - UDS pos for benzo - Ativan prn and geodon - Psych consult. appreciate recs - nursing swallow screen. can start diet if patient passes. Depression: [facility]. Leukocytosis: - resolved - Pt denies cough, urinary symptoms - UA shows trace leukocyte esterase with WBC 2-5, neg nitrate - CXR neg for infiltrates - remains afebrile - monitor PPX: pepcieric, scds Case discussed with Dr Lieberman. Gali Naranjo, PGY1
[2017-08-03 16:46] VITALS: RESP 20
--- NOTE | 2017-08-03 17:25 | CON ---
DATE: 08/03/2017 HISTORY OF PRESENT ILLNESS: In short, the patient is a 42-year-old male with not known previous psychiatric history. The patient has history of polysubstance abuse and dependence. The patient was brought in to the hospital by his for evaluation of severe agitation, substance-induced psychosis. In the emergency room, the patient was agitated and needed to be medicated with haloperidol as well as Ativan, was not restrained. Psych consult was called for evaluation of possible depressive symptoms and hallucinations. The patient was seen and examined today. The patient presented to be alert, somewhat restless, but not confused. The patient know the date, know that he is in the hospital, but quite not sure about the circumstances of his admission to the medical site. The patient overall presented well. Full range of affect. 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 The patient reported that he was using drugs including [place], benzodiazepines, history of cocaine abuse. The patient reported that he is going through marital problems right now and he is depressed because of that, but the patient adamantly denied thoughts of harming himself. Denied thoughts of harming others. The patient reported no hallucinations at present moment. Remember being confused and agitated. As per patient's perspective, it was related to the drugs what he used. The patient denied history of mental illness. The patient denied history of being admitted to the Psychiatric Inpatient Unit. The patient also denied history of being evaluated by psychiatrist. Denied history of suicidal attempt. Vital signs are stable. Temperature 97.3, pulse is 67, blood pressure 130/78, respirations 20, oxygen saturation is 98. Medications reviewed. The patient is on Klonopin 0.5 mg twice a day, heparin, Ativan, Protonix and sodium chloride. Labs reviewed. At the time of admission yesterday, WBC cells were 18.8, hemoglobin and hematocrit 14.4 and 41 respectively. Coagulation reviewed. Chemistry reviewed. Lactate dehydrogenase is 1030. Total creatine kinase is 1315. CK-MB elevated. Urinalysis showed granular cast trace, leukocyte esterase trace, nitrite is negative, blood large. Toxicology positive for benzodiazepines, but the patient reported that he used synthetic drugs [place]. MENTAL STATUS EXAMINATION: The patient presented to be alert, oriented, know that he is in the hospital. Intermittent eye contact. Speech was normal rate, tone, quality and quantity. Mood described, I feel better. Affect was full range. The patient was making appropriate jokes. Thought process seems to be goal directed. Thought content, the patient denied visual, auditory or tactile hallucinations. Denied paranoid ideation. The patient denied thoughts of harming himself or others. Denied intent or plan. Insight and judgment seems to be improving. Impulses are well controlled. Overnight, the patient had hallucinations, but not today. IMPRESSION: Substance-induced psychosis, rule out adjustment disorder. The patient lost his job in the [employer] and presently has marital problems. PLAN: The patient denied being depressed. Denied thoughts of harming himself or others. The patient has future-oriented plans. 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 The patient has plans to stop using drugs. The patient is not psychotic. The patient is not depressed. The patient is not anxious. The patient might benefit from AA meetings, NA meetings as well, so the patient pose no imminent danger to self or others. bone worker evaluation please provide information about AA meetings and NA meetings. The patient is improving. I will discontinue one-to-one. The patient might benefit from inpatient rehab, but the patient said that he has no insurance. This physician underwriter signed off from this case. This physician underwriter would recommend 24-hour observation and if the patient has stable improvement, could be safely discharged back then. Case was discussed with Dr. Brantley. Should you have any questions, give me a call back. Lana Pineda MD
[2017-08-04 01:19] VITALS: BP 126/67; TEMP 98.2; O2SAT 97
[2017-08-04] MEDS: Sodium Chloride 0.9% 1,000 ML IV SCH (02:08)
[2017-08-04 06:53] LABS: BASO # 0.01 K/mm3 (0.0-2.0); BASO % 0.2 % (0.0-3.0); EOS # 0.2 (0.0-0.7); GRAN # 3.6 (1.4-6.5); GRAN % 60.5 % (50.0-68.0); HEMOGLOBIN 12.7 g/dL (14.0-18.0); LYMPH # 1.5 (1.2-3.4); LYMPH % 24.4 % (22.0-35.0); MEAN CELL VOLUME 87.4 fl (80.0-105.0); MEAN CORPUSCULAR HEMOGLOBIN 28.7 pg (25.0-35.0); MEAN CORPUSCULAR HGB CONC 32.8 g/dl (31.0-37.0); MEAN PLATELET VOLUME 8.5 fl (7.0-11.0); MONO # 0.7 (0.1-0.6); MONO % 10.9 % (1.0-6.0); RBC 4.43 10^6/uL (3.5-6.1); RED CELL DISTRIBUTION WIDTH 13.9 % (11.5-14.5)
[2017-08-04 07:10] LABS: ALB/GLOB RATIO 1.2 (1.1-1.8); ALBUMIN 3.2 g/dL (3.0-4.8); ALT/SGPT 48 U/L (7-56); AST/SGOT 64 U/L (17-59); BLOOD UREA NITROGEN 10 mg/dL (7-21); CALCIUM 8.2 mg/dL (8.4-10.5); GFR AFRICAN-AMERICAN > 60; GFR NON-AFRICAN AMERICAN > 60
[2017-08-04 07:25] LABS: CK MB% 1.6 % (2.5-3.0); CK-MB 5.4 ng/mL (0.0-3.6)
[2017-08-04 14:34] VITALS: PULSE 89
--- NOTE | 2017-08-04 20:45 | CP.PCM.DIS ---
<Gali Naranjo - Last Filed: 08/04/17 20:42> Provider - Provider Date of Admission: 08/02/17 15:39 Attending physician: Jelena Woo MD Consults: Mirtha Schwartz Time Spent in preparation of Discharge (in minutes): 60 Diagnosis - Discharge Diagnosis (1) Secondary rhabdomyolysis Status: Acute (2) Substance abuse or dependence Status: Acute Hospital Course - Lab Results Lab Results: Micro Results 08/02/17 19:55 Urine,Clean Catch Urine Culture - Final No Growth (<1,000 CFU/ML) Most Recent Lab Values WBC 6.0 10^3/ul (4.5-11.0) 08/04/17 06:30 RBC 4.43 10^6/uL (3.5-6.1) 08/04/17 06:30 Hgb 12.7 g/dL (14.0-18.0) L 08/04/17 06:30 Hct 38.7 % (42.0-52.0) L 08/04/17 06:30 MCV 87.4 fl (80.0-105.0) 08/04/17 06:30 MCH 28.7 pg (25.0-35.0) 08/04/17 06:30 MCHC 32.8 g/dl (31.0-37.0) 08/04/17 06:30 RDW 13.9 % (11.5-14.5) 08/04/17 06:30 Plt Count 251 10^3/uL (120.0-450.0) 08/04/17 06:30 MPV 8.5 fl (7.0-11.0) 08/04/17 06:30 Gran % 60.5 % (50.0-68.0) 08/04/17 06:30 Lymph % (Auto) 24.4 % (22.0-35.0) 08/04/17 06:30 [place] % (Auto) 10.9 % (1.0-6.0) H 08/04/17 06:30 Eos % (Auto) 4.0 % (1.5-5.0) 08/04/17 06:30 Baso % (Auto) 0.2 % (0.0-3.0) 08/04/17 06:30 Gran # 3.60 (1.4-6.5) 08/04/17 06:30 Lymph # (Auto) 1.5 (1.2-3.4) 08/04/17 06:30 [place] # (Auto) 0.7 (0.1-0.6) H 08/04/17 06:30 Eos # (Auto) 0.2 (0.0-0.7) 08/04/17 06:30 Baso # (Auto) 0.01 K/mm3 (0.0-2.0) 08/04/17 06:30 PT 12.3 SECONDS (9.4-12.5) 08/02/17 10:45 INR 1.07 (0.93-1.08) 08/02/17 10:45 APTT 27.9 Seconds (25.1-36.5) 08/02/17 10:45 Sodium 144 mmol/L (132-148) 08/04/17 06:30 Potassium 4.4 mmol/L (3.6-5.0) 08/04/17 06:30 Chloride 110 mmol/L (98-107) H 08/04/17 06:30 Carbon Dioxide 28 mmol/L (21-33) 08/04/17 06:30 Anion Gap 11 (10-20) 08/04/17 06:30 BUN 10 mg/dL (7-21) 08/04/17 06:30 Creatinine 0.8 mg/dl (0.8-1.5) 08/04/17 06:30 Est GFR ( Amer) > 60 08/04/17 06:30 Est GFR (Non-Af Amer) > 60 08/04/17 06:30 Random Glucose 111 mg/dL (70-110) H 08/04/17 06:30 Calcium 8.2 mg/dL (8.4-10.5) L 08/04/17 06:30 Total Bilirubin 0.5 mg/dL (0.2-1.3) 08/04/17 06:30 AST 64 U/L (17-59) H 08/04/17 06:30 ALT 48 U/L (7-56) 08/04/17 06:30 Alkaline Phosphatase 60 U/L (38-126) 08/04/17 06:30 Lactate Dehydrogenase 1101 U/L (333-699) H 08/02/17 10:45 Total Creatine Kinase 340 U/L (35-230) H 08/04/17 06:30 CK-MB (CK-2) 5.4 ng/mL (0.0-3.6) H 08/04/17 06:30 CK-MB (CK-2) % 1.6 % (2.5-3.0) L 08/04/17 06:30 Troponin I < 0.01 ng/mL 08/03/17 00:30 Total Protein 5.9 g/dL (5.8-8.3) 08/04/17 06:30 Albumin 3.2 g/dL (3.0-4.8) 08/04/17 06:30 Globulin 2.7 gm/dL 08/04/17 06:30 Albumin/Globulin Ratio 1.2 (1.1-1.8) 08/04/17 06:30 Urine Color Yellow (YELLOW) 08/02/17 13:45 Urine Appearance Clear (CLEAR) 08/02/17 13:45 Urine pH 6.0 (4.7-8.0) 08/02/17 13:45 Ur Specific [place] >= 1.030 (1.005-1.035) 08/02/17 13:45 Urine Protein 100 mg/dL (<30 mg/dL) H 08/02/17 13:45 Urine Glucose (UA) Negative mg/dL (NEGATIVE) 08/02/17 13:45 Urine Ketones 40 mg/dL (NEGATIVE) H 08/02/17 13:45 Urine Blood Large (NEGATIVE) H 08/02/17 13:45 Urine Nitrate Negative (NEGATIVE) 08/02/17 13:45 Urine Bilirubin Small (NEGATIVE) H 08/02/17 13:45 Urine Urobilinogen 0.2 E.U./dL (<1 E.U./dL) 08/02/17 13:45 Ur Leukocyte Esterase Trace Fred/uL (NEGATIVE) H 08/02/17 13:45 Urine RBC 25 - 30 /hpf (0-2) 08/02/17 13:45 Urine WBC 5 - 10 /hpf (0-6) 08/02/17 13:45 Ur Epithelial Cells 0 - 2 /hpf (0-5) 08/02/17 13:45 Amorphous Sediment Few 08/02/17 13:45 Urine Bacteria Many (NEG) 08/02/17 13:45 Fine Granular Casts 0 - 2 /hpf (0-2) 08/02/17 13:45 Coarse Granular Casts Trace /hpf (0-2) H 08/02/17 13:45 Urine Opiates Screen Negative (NEGATIVE) 08/02/17 13:45 Urine Methadone Screen Negative (NEGATIVE) 08/02/17 13:45 Ur Barbiturates Screen Negative (NEGATIVE) 08/02/17 13:45 Ur Phencyclidine Scrn Negative (NEGATIVE) 08/02/17 13:45 Ur Amphetamines Screen Negative (NEGATIVE) 08/02/17 13:45 U Benzodiazepines Scrn Positive (NEGATIVE) H 08/02/17 13:45 U Oth Cocaine Metabols Negative (NEGATIVE) 08/02/17 13:45 U Cannabinoids Screen Negative (NEGATIVE) 08/02/17 13:45 Alcohol, Quantitative < 10 mg/dL (0-10) 08/02/17 10:45 - Hospital Course Hospital Course: 42 M with a past medical history of pneumothorax, anxiety, and depression who is presenting with agitation s/p multidrug use. Pt also found to have elevated CPK, treated well with adequate hydration. Psych consulted, pt refused depression, SI, homicidal ideation. Offered to schedule AA, NA meetings, pt refused. CPK level trended down. Pt advised to stop using recreational drugs. Follow up with [facility] at [facility]. Case discussed with Dr Lieberman. Gali Naranjo, pGY1 Discharge Exam - Head Exam Head Exam: ATRAUMATIC, NORMOCEPHALIC - Eye Exam Eye Exam: EOMI, PERRL. absent: Conjunctival injection, Nystagmus, Scleral icterus Pupil Exam: NORMAL ACCOMODATION, PERRL. absent: Fixed, Irregular, Miosis, Unequal - ENT Exam ENT Exam: Mucous Membranes Moist - Neck Exam Neck exam: Full Rom - Respiratory Exam Respiratory Exam: Clear to PA & Lateral, NORMAL BREATHING PATTERN. absent: Chest Wall Tenderness, Rales, Rhonchi, Wheezes, Respiratory Distress, Stridor - Cardiovascular Exam Cardiovascular Exam: RRR, +S1, +S2. absent: Systolic Murmur - GI/Abdominal Exam GI & Abdominal Exam: Normal Bowel Sounds, Soft. absent: Distended, Firm, Guarding, Mass, Organomegaly, Rebound, Rigid, Tenderness - Extremities Exam Extremities exam: normal inspection - Back Exam Back exam: NORMAL INSPECTION - Neurological Exam Neurological exam: Alert, Oriented x3 - Psychiatric Exam Psychiatric exam: Normal Affect, Normal Mood - Skin Skin Exam: Dry, Normal Color, Warm Discharge Plan - Follow Up Plan Condition: FAIR Disposition: HOME/ ROUTINE Patient education suggested?: Yes Instructions: Drug Abuse and Drug Addiction (DC), Rhabdomyolysis (DC), Polysubstance Abuse (DC) Additional Instructions: Avoid drugs. Highly recommend alcoholic anonymous meetings and narcotics anonymous meetings outpatient. Follow up with [facility] [place] - Phone #: [phone]. Tried reaching the clinic (with no reponse). Return to the ER for any concerns. <Merlin Lieberman - Last Filed: 08/05/17 08:41> Provider - Provider Date of Admission: 08/02/17 15:39 Attending physician: Jelena Woo MD Hospital Course - Lab Results Lab Results: Micro Results 08/02/17 19:55 Urine,Clean Catch Urine Culture - Final No Growth (<1,000 CFU/ML) Most Recent Lab Values WBC 6.0 10^3/ul (4.5-11.0) 08/04/17 06:30 RBC 4.43 10^6/uL (3.5-6.1) 08/04/17 06:30 Hgb 12.7 g/dL (14.0-18.0) L 08/04/17 06:30 Hct 38.7 % (42.0-52.0) L 08/04/17 06:30 MCV 87.4 fl (80.0-105.0) 08/04/17 06:30 MCH 28.7 pg (25.0-35.0) 08/04/17 06:30 MCHC 32.8 g/dl (31.0-37.0) 08/04/17 06:30 RDW 13.9 % (11.5-14.5) 08/04/17 06:30 Plt Count 251 10^3/uL (120.0-450.0) 08/04/17 06:30 MPV 8.5 fl (7.0-11.0) 08/04/17 06:30 Gran % 60.5 % (50.0-68.0) 08/04/17 06:30 Lymph % (Auto) 24.4 % (22.0-35.0) 08/04/17 06:30 [place] % (Auto) 10.9 % (1.0-6.0) H 08/04/17 06:30 Eos % (Auto) 4.0 % (1.5-5.0) 08/04/17 06:30 Baso % (Auto) 0.2 % (0.0-3.0) 08/04/17 06:30 Gran # 3.60 (1.4-6.5) 08/04/17 06:30 Lymph # (Auto) 1.5 (1.2-3.4) 08/04/17 06:30 [place] # (Auto) 0.7 (0.1-0.6) H 08/04/17 06:30 Eos # (Auto) 0.2 (0.0-0.7) 08/04/17 06:30 Baso # (Auto) 0.01 K/mm3 (0.0-2.0) 08/04/17 06:30 PT 12.3 SECONDS (9.4-12.5) 08/02/17 10:45 INR 1.07 (0.93-1.08) 08/02/17 10:45 APTT 27.9 Seconds (25.1-36.5) 08/02/17 10:45 Sodium 144 mmol/L (132-148) 08/04/17 06:30 Potassium 4.4 mmol/L (3.6-5.0) 08/04/17 06:30 Chloride 110 mmol/L (98-107) H 08/04/17 06:30 Carbon Dioxide 28 mmol/L (21-33) 08/04/17 06:30 Anion Gap 11 (10-20) 08/04/17 06:30 BUN 10 mg/dL (7-21) 08/04/17 06:30 Creatinine 0.8 mg/dl (0.8-1.5) 08/04/17 06:30 Est GFR ( Amer) > 60 08/04/17 06:30 Est GFR (Non-Af Amer) > 60 08/04/17 06:30 Random Glucose 111 mg/dL (70-110) H 08/04/17 06:30 Calcium 8.2 mg/dL (8.4-10.5) L 08/04/17 06:30 Total Bilirubin 0.5 mg/dL (0.2-1.3) 08/04/17 06:30 AST 64 U/L (17-59) H 08/04/17 06:30 ALT 48 U/L (7-56) 08/04/17 06:30 Alkaline Phosphatase 60 U/L (38-126) 08/04/17 06:30 Lactate Dehydrogenase 1101 U/L (333-699) H 08/02/17 10:45 Total Creatine Kinase 340 U/L (35-230) H 08/04/17 06:30 CK-MB (CK-2) 5.4 ng/mL (0.0-3.6) H 08/04/17 06:30 CK-MB (CK-2) % 1.6 % (2.5-3.0) L 08/04/17 06:30 Troponin I < 0.01 ng/mL 08/03/17 00:30 Total Protein 5.9 g/dL (5.8-8.3) 08/04/17 06:30 Albumin 3.2 g/dL (3.0-4.8) 08/04/17 06:30 Globulin 2.7 gm/dL 08/04/17 06:30 Albumin/Globulin Ratio 1.2 (1.1-1.8) 08/04/17 06:30 Urine Color Yellow (YELLOW) 08/02/17 13:45 Urine Appearance Clear (CLEAR) 08/02/17 13:45 Urine pH 6.0 (4.7-8.0) 08/02/17 13:45 Ur Specific [place] >= 1.030 (1.005-1.035) 08/02/17 13:45 Urine Protein 100 mg/dL (<30 mg/dL) H 08/02/17 13:45 Urine Glucose (UA) Negative mg/dL (NEGATIVE) 08/02/17 13:45 Urine Ketones 40 mg/dL (NEGATIVE) H 08/02/17 13:45 Urine Blood Large (NEGATIVE) H 08/02/17 13:45 Urine Nitrate Negative (NEGATIVE) 08/02/17 13:45 Urine Bilirubin Small (NEGATIVE) H 08/02/17 13:45 Urine Urobilinogen 0.2 E.U./dL (<1 E.U./dL) 08/02/17 13:45 Ur Leukocyte Esterase Trace Fred/uL (NEGATIVE) H 08/02/17 13:45 Urine RBC 25 - 30 /hpf (0-2) 08/02/17 13:45 Urine WBC 5 - 10 /hpf (0-6) 08/02/17 13:45 Ur Epithelial Cells 0 - 2 /hpf (0-5) 08/02/17 13:45 Amorphous Sediment Few 08/02/17 13:45 Urine Bacteria Many (NEG) 08/02/17 13:45 Fine Granular Casts 0 - 2 /hpf (0-2) 08/02/17 13:45 Coarse Granular Casts Trace /hpf (0-2) H 08/02/17 13:45 Urine Opiates Screen Negative (NEGATIVE) 08/02/17 13:45 Urine Methadone Screen Negative (NEGATIVE) 08/02/17 13:45 Ur Barbiturates Screen Negative (NEGATIVE) 08/02/17 13:45 Ur Phencyclidine Scrn Negative (NEGATIVE) 08/02/17 13:45 Ur Amphetamines Screen Negative (NEGATIVE) 08/02/17 13:45 U Benzodiazepines Scrn Positive (NEGATIVE) H 08/02/17 13:45 U Oth Cocaine Metabols Negative (NEGATIVE) 08/02/17 13:45 U Cannabinoids Screen Negative (NEGATIVE) 08/02/17 13:45 Alcohol, Quantitative < 10 mg/dL (0-10) 08/02/17 10:45 Attending/Attestation - Attestation I have personally seen and examined this patient.: Yes I have fully participated in the care of the patient.: Yes I have reviewed all pertinent clinical information, including history, physical exam and plan: Yes Notes (Text): Patient seen and examined with the residents. Agree with above Clinically much improved. Denies muscle weakness. Ambulating with a strong and steady gait HD stable for d/c. Encouraged increased water intake the next few days.
== END 2017-08-04 15:52 | disposition home or self-care (01) | DRG 558 ==
LOC: ED 09:32 → ERH 15:39 → 2RSO 22:14
PROVIDERS: ADMIT Internal Medicine; ATTEND Internal Medicine
DX: M62.82 Rhabdomyolysis (principal); F16.20 Hallucinogen dependence, uncomplicated; F14.20 Cocaine dependence, uncomplicated; F41.9 Anxiety disorder, unspecified; F12.20 Cannabis dependence, uncomplicated; F32.9 Major depressive disorder, single episode, unspecified; R26.81 Unsteadiness on feet; Z63.0 Problems in relationship with spouse or partner